=== PATIENT | male | born 1990 | race Two or more races ===

== ENCOUNTER 2019-02-23 13:38 | Emergency (ER) | payer OTHER ==
[~2019-02-23] VITALS: Ht 165.1 cm; Wt 59.9 kg
== END 2019-02-23 16:32 | disposition home or self-care (01) ==
LOC: ER 13:38
DX: S66.811A Strain of other specified muscles, fascia and tendons at wrist and hand level, right hand, initial encounter (principal); X50.3XXA Overexertion from repetitive movements, initial encounter; Y93.B3 Activity, free weights; Y92.89 Other specified places as the place of occurrence of the external cause; Y99.8 Other external cause status